=== PATIENT | female | born 1985 | race African-American/Black ===

== ENCOUNTER 2024-08-23 14:15 | Emergency (ER) | payer OTHER, SELFPAY | END 2024-08-23 15:32 | LOC: CSHERS 14:15 | DX: S60.032A Contusion of left middle finger without damage to nail, initial encounter (principal); S60.022A Contusion of left index finger without damage to nail, initial encounter; I10 Essential (primary) hypertension; Y93.K9 Activity, other involving animal care; W26.9XXA Contact with unspecified sharp object(s), initial encounter | CPT/HCPCS: 99283 ==

== ENCOUNTER 2024-09-29 11:11 | Emergency (ER) | payer OTHER | END 2024-09-29 12:50 | disposition home or self-care (01) | LOC: CSHERS 11:11 | DX: J20.9 Acute bronchitis, unspecified (principal); I10 Essential (primary) hypertension; Z55.0 Illiteracy and low-level literacy; Z79.899 Other long term (current) drug therapy | CPT/HCPCS: 71046 ==

== ENCOUNTER 2024-10-06 18:26 | Emergency (ER) | payer OTHER | END 2024-10-06 19:43 | disposition home or self-care (01) | LOC: CSHERS 18:26 | DX: S63.502A Unspecified sprain of left wrist, initial encounter (principal); I10 Essential (primary) hypertension; W18.30XA Fall on same level, unspecified, initial encounter | CPT/HCPCS: 99283 ==

== ENCOUNTER 2025-08-12 21:49 | Emergency (ER) | payer OTHER ==
[~2025-08-12 21:49] MED LIST: Iopamidol 370 76% 100 ML VIAL ONE
[2025-08-13 00:28] LABS: #Basophils Less than 0.03 10x3/uL (0.0-0.2); #Eosinophils 0.03 10x3/uL (0.0-0.5); #Monocytes 0.51 10x3/uL (0.0-1.1); #Neutrophils 3.02 10x3/uL (1.5-8.4); %Basophils 0.4 % (0.0-2.0); %Eosinophils 0.5 % (0.0-6.0); %Lymphocytes 34.8 % (18.0-47.0); %Monocytes 9.3 % (0.0-10.0); %Neutrophils 55.0 % (40.0-75.0); Hematocrit 34.5 % (34.9-44.5); Hemoglobin 11.6 g/dL (12.0-15.5); Mean Corpuscular Hemoglobin 28.8 pg (27.0-33.0); Mean Corpuscular Volume 85.6 fL (81.6-98.3); Platelet Count 267 10x3/uL (150-450); Red Blood Cell (RBC) Count 4.03 10x6/uL (3.90-5.03); White Blood Cell (WBC) Count 5.49 10x3/uL (3.5-10.5)
[2025-08-13 00:37] LABS: BHCG - Serum Negative (NEGATIVE); Pregs Control Background? CLEAR/WHITE (CLR/WHITE); Pregs Control Bar Appear? YES (CONTROL BAR)
[2025-08-13 00:42] LABS: ALT (SGPT) 11 U/L (Less than 34); AST (SGOT) 17 U/L (11-34); Albumin 3.8 g/dL (3.1-4.5); Alkaline Phosphatase 76 U/L (40-110); Anion Gap 11 mmol/L (10-20); BUN (Urea Nitrogen) 12 mg/dL (7.0-18.7); Bilirubin, Total 0.4 mg/dL (0.3-1.2); Calc. Creatinine Clearance 0 mL/min (70-130); Calcium 9.4 mg/dL (7.8-10.44); Carbon Dioxide 29 mmol/L (22-29); Chloride 102 mmol/L (98-107); Globulin 3.6 g/dL (2.4-3.5); Glucose 92 mg/dL (70-105); Potassium 3.4 mmol/L (3.5-5.1); Sodium 139 mmol/L (136-145)
[2025-08-13] MEDS ORDERED: Prochlorperazine 10 MG/2 ML VIAL ONE (00:45)
[2025-08-13] MEDS ORDERED: Ketorolac Tromethamine 30 MG (1 mL) VIAL ONE (00:45)
== END 2025-08-13 02:08 | disposition home or self-care (01) ==
LOC: CSHERS 21:49
DX: R51.9 Headache, unspecified (principal); R29.700 NIHSS score 0; Z86.73 Personal history of transient ischemic attack (TIA), and cerebral infarction without residual deficits; Z79.899 Other long term (current) drug therapy
CPT/HCPCS: 36415; 70450; 70460; 80053; 84703; 85025; 87428; 96374; 96375; J0780; J1885; Q9967